=== PATIENT | male | born 1960 | race Two or more races ===

== ENCOUNTER → 2018-12-15 | Outpatient (CLI) | payer OTHER | LOC: CIMAGING 14:18 | PROVIDERS: ATTEND Orthopaedic Surgery | DX: M16.12 Unilateral primary osteoarthritis, left hip (principal); M43.17 Spondylolisthesis, lumbosacral region; M51.36 Other intervertebral disc degeneration, lumbar region; M51.37 Other intervertebral disc degeneration, lumbosacral region; K57.90 Diverticulosis of intestine, part unspecified, without perforation or abscess without bleeding; K40.90 Unilateral inguinal hernia, without obstruction or gangrene, not specified as recurrent | CPT/HCPCS: 73700-PO ==

== ENCOUNTER 2019-01-11 09:09 | Inpatient (IN) | payer OTHER | END 2019-01-12 11:16 | disposition home or self-care (01) | LOC: F3N 09:09 ==